=== PATIENT | female | born 1965 | race Caucasian/White ===

== ENCOUNTER → 2017-03-23 | Outpatient (CLI) | payer OTHER ==
[~2017-03-23] MED LIST: CEFTIN500 MG PO; ESCITALOPRAM20 MG PO; LEVOTHYROXINE0.05 MG NG; MEDROL 4MG. DOSE4 MG PO; OMEPRAZOLE40 MG PO; ZITHROMAX Z PA250 MG PO; ZITHROMAX Z-PA250 M2 PO
--- NOTE | 2017-03-23 15:17 | RADIOLOGY REPORT PS360 ---
US THYROID COMPARISON: None HISTORY: Stroke hypothyroidism, suspect goiter TECHNIQUE: Targeted ultrasound the thyroid FINDINGS: The isthmus of the gland appears normal. The right lobe measures 1.7 x 2.3 x 4.4 cm. The left lobe measures 1.8 x 1.9 x 4.3 cm. There is a hypoechoic solid nodule upper pole right lobe measuring 1.2 x 0.8 cm with a rather poor interface between the nodule and the surrounding thyroid parenchyma. There is a second hypoechoic nodule in the midpole measuring 0.7 x 1.4 cm again showing somewhat poor interface at the borders. There is a third nodule in the lower pole measuring 1.0 x 0.8 x 0.8 cm with heterogenic echogenicity and somewhat poor interface with the adjacent parenchymal tissue. There is a hypoechoic oval nodule upper pole left lobe measuring 1.1 x 1.2 x 0.6 cm which shows a somewhat poor interface with the surrounding thyroid parenchyma. There is a second nodule in the lower pole somewhat hypoechoic measuring 1.3 x 1.7 x 0.9 cm again showing poor interface with the thyroid parenchyma. IMPRESSION: Borderline enlarged gland with multiple bilateral hypoechoic solid nodules with somewhat decreased vascular flow to the both lobes.
== END ==
LOC: RAD 11:00
DX: E04.9 Nontoxic goiter, unspecified (principal)